=== PATIENT | male | born 1955 | race Caucasian/White ===

== ENCOUNTER → 2016-08-11 | Outpatient (CLI) | payer OTHER, MEDICARE | LOC: KOH-I 08:47 | DX: M54.5 Low back pain (principal); M51.26 Other intervertebral disc displacement, lumbar region; M51.27 Other intervertebral disc displacement, lumbosacral region; M43.17 Spondylolisthesis, lumbosacral region; Z98.1 Arthrodesis status | CPT/HCPCS: 72131 ==

== ENCOUNTER → 2021-09-25 | Outpatient (CLI) | payer MEDICARE, OTHER ==
[~2021-09-25] MED LIST: ALL DAY ALLERGY10 M3 PO; BREO ELLIPTA 11 EACH INH; DAILY MULTIPLE1 EAC1 PO; ECOTRIN81 MG PO; FLUTICASONE PRO16 GM; LOVASTATIN40 MG PO; PLAVIX 75 MG TA75 MG PO; PROAIR HFA8.5 GM INH; SYNTHROID75 MCG PO; SYNTHROID88 MCG PO; ZESTRIL30 MG PO; ZETIA10 MG PO
== END ==
LOC: EMI 13:10
DX: M51.26 Other intervertebral disc displacement, lumbar region (principal)
CPT/HCPCS: 72148

== ENCOUNTER 2021-12-15 17:30 | Observation (INO) | payer MEDICARE, OTHER ==
[~2021-12-15] VITALS: Ht 177.8 cm; Wt 89.8 kg
[~2021-12-15 17:30] MED LIST changes: -BREO ELLIPTA 11 EACH INH; +BREO ELLIPTA 11 EACH PO; +FLONASE 0.05% N16 GM; -FLUTICASONE PRO16 GM
[2021-12-15 18:32] LABS: HEMOGLOBIN 16.4 gm/dl (14.0-17.5); RED BLOOD COUNT 4.94 M/UL (4.20-5.50); WHITE BLOOD COUNT 6.6 K/UL (4.5-11.0)
[2021-12-15 19:06] LABS: BUN/CREATININE RATIO 18 (0-10)
[2021-12-15] MEDS ORDERED: GABAPENTIN100 MG PO (23:30)
[2021-12-15] MEDS ORDERED: KLONOPIN TAB 00.5 MG PO (23:34)
[2021-12-16] MEDS ORDERED: LEVOTHYROXINE100 MC2 PO (13:53)
[2021-12-16] MEDS ORDERED: METOPROLOL SUCC25 MG PO (13:53)
[2021-12-16] MEDS ORDERED: LEVOCETIRIZINE D5 MG PO (13:53)
[2021-12-16] MEDS ORDERED: VITAMIN D325 MC6 PO (13:54)
[2021-12-16] MEDS ORDERED: MONTELUKAST SOD10 MG PO (13:54)
[2021-12-16] MEDS ORDERED: FLOMAX 0.4 MG0.4 MG PO (13:54)
== END 2021-12-16 17:28 | disposition home or self-care (01) ==
LOC: ER1 17:30 → CDU 21:48 → M/S 21:48
PROVIDERS: Nurse Practitioner; ADMIT Internal Medicine
DX: G45.4 Transient global amnesia (principal); I25.10 Atherosclerotic heart disease of native coronary artery without angina pectoris; I10 Essential (primary) hypertension; E78.5 Hyperlipidemia, unspecified; Z20.822 Contact with and (suspected) exposure to COVID-19; Z87.891 Personal history of nicotine dependence; Z88.5 Allergy status to narcotic agent; Z88.8 Allergy status to other drugs, medicaments and biological substances
CPT/HCPCS: ECHO; 36415; 70450; 70496; 70498; 70551; 71045; 80053; 80061; 81001; 82550; 82553; 83605; 84484; 85025; 85610; 85730; 87040; 87086; 93005; 93306; 99285; G0378; Q9967; U0002